=== PATIENT | female | born 2000 | race Caucasian/White ===

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

== ENCOUNTER → 2019-10-30 | Outpatient (CLI) | payer OTHER ==
--- NOTE | 2019-10-30 16:50 | XR ---
Bilateral knees HISTORY: Pain 3 views of each knee submitted on a total 6 images Bone mineralization, joint spaces and alignment are maintained bilaterally. No evident joint effusion . IMPRESSION: Normal knees.
== END | disposition home or self-care (01) ==
LOC: RADXRMAIN 13:13
PROVIDERS: ATTEND Family Medicine
DX: M25.561 Pain in right knee (principal)

== ENCOUNTER 2020-04-19 18:19 | Emergency (ER) | payer OTHER ==
[2020-04-19] MEDS ORDERED: KETOROLAC 30 MG/ML 1 ML VIAL IVP STA (19:19)
[2020-04-19] MEDS ORDERED: ONDANSETRON 4 MG/2 ML VIAL IVP STA (19:19)
[2020-04-19] MEDS ORDERED: SODIUM CHLORIDE 0.9% 1,000 ML IV STA (19:19)
[2020-04-19 19:36] LABS: Basophils # (A) 0.1 k/uL (0-0.2); Basophils % (A) 1 %; Eosinophils # (A) 0.1 k/uL (0-0.7); Eosinophils % (A) 1 %; HCT 44.1 % (34.0-46.0); HGB 14.6 gm/dL (11.4-16.0); Lymphocytes % (A) 27 %; MCH 27.9 pg (25.0-35.0); MCHC 33.2 g/dL (31.0-37.0); MCV 84.2 fL (80.0-100.0); Mean Platelet Volume 7.6; Monocytes # (A) 0.5 k/uL (0-1.0); Monocytes % (A) 7 %; Neutrophils # (A) 4.6 k/uL (1.3-7.7); Neutrophils % (A) 62 %; Platelet Count 281 k/uL (150-450); RBC 5.24 m/uL (3.80-5.40); RDW 12.8 % (11.5-15.5); WBC 7.4 k/uL (3.8-10.6)
[2020-04-19 19:45] LABS: Amorphous Sediment,Urine Rare /hpf; Appearance,Urine Clear (Clear); Bacteria,Urine Occasional /hpf; Bilirubin,Urine Negative (Negative); Blood,Urine Small (Negative); Color,Urine Yellow; Glucose,Urine (UA) Negative (Negative); Hyaline Casts,Urine 3 /lpf (0-2); Ketones,Urine 1+ (Negative); Leukocyte Esterase,Urine Negative (Negative); Mucus,Urine Many /hpf; Nitrite,Urine Negative (Negative); PH, Urine 5.5 (5.0-8.0); Protein,Urine Trace (Negative); RBC,Urine 3 /hpf (0-5); Squamous Epithelial Cell,Urine 1 /hpf (0-4); Urobilinogen,Urine <2.0 mg/dL (<2.0); WBC,Urine 4 /hpf (0-5)
[2020-04-19 19:46] LABS: ALT 48 U/L (4-34); AST 33 U/L (14-36); African American GFR (CKD) >90 (>60 ml/min/1.73 sqM); Albumin 4.5 g/dL (3.5-5.0); Alkaline Phosphatase 100 U/L (38-126); Anion Gap 9 mmol/L; Blood Urea Nitrogen 8 mg/dL (7-17); Calcium 9.5 mg/dL (8.4-10.2); Carbon Dioxide 25 mmol/L (22-30); Chloride 102 mmol/L (98-107); Glucose 85 mg/dL (74-99); Non-African American GFR(CKD) >90 (>60 ml/min/1.73 sqM); Sodium 136 mmol/L (137-145); Total Bilirubin 1.5 mg/dL (0.2-1.3)
[2020-04-19 20:21] VITALS: PULSE 78; RESP 18; TEMP 98.5
[2020-04-19 20:23] VITALS: BP 107/68
--- NOTE | 2020-04-19 21:13 | ED ---
Nausea/Vomiting/Diarrhea HPI - General Chief complaint: Nausea/Vomiting/Diarrhea Stated complaint: nausea, fever Time Seen by Provider: 04/19/20 18:26 Source: patient Mode of arrival: ambulatory Limitations: no limitations - History of Present Illness Initial comments: Patient is a 20-year-old female presenting to the emergency Department with complaints of intermittent nausea as well as diarrhea that has been going on for approximately 3 months. She states her appetite is also low. She states she has been trying to lose weight within the past few months and has been eating well. She does have a history of cholecystectomy. She denies any abdominal pains. She is prescribed Zofran and does take it almost daily. She does not see a GI doctor. She states she has a family history of IBS. She denies being at this time. She denies any vomiting, blood in her stool. She denies any urinary complaints. She denies any recent fever, chills. He denies any chest pain or shortness of breath. She has no further complaints at this time. Upon arrival to the ER, her vital signs are stable. - Related Data Previous Rx's Medication Instructions Recorded Ibuprofen 600 mg PO Q6HR #20 tablet 11/22/17 Omeprazole [PriLOSEC] 20 mg PO AC-BRKFST #14 cap 04/19/20 Ondansetron Odt [Zofran Odt] 4 mg PO Q8HR PRN #10 tab 04/19/20 Allergies Allergy/AdvReac Type Severity Reaction Status Date / Time metoclopramide HCl Allergy Rapid Verified 04/19/20 18:20 [From Reglan] Heart Rate sumatriptan [From Imitrex] Allergy Unknown Verified 04/19/20 18:20 diphenhydramine HCl AdvReac Unknown Verified 04/19/20 18:20 [From Benadryl] Review of Systems ROS Statement: Those systems with pertinent positive or pertinent negative responses have been documented in the HPI. ROS Other: All systems not noted in ROS Statement are negative. Past Medical History Past Medical History: No Reported History Additional Past Medical History / Comment(s): Wrist fracture bilaterally ciarri malformation , migraines. PCOS History of Any Multi-Drug Resistant Organisms: None Reported Past Surgical History: Cholecystectomy, Ear Surgery Additional Past Surgical History / Comment(s): tubes in ears Past Psychological History: No Psychological Hx Reported Smoking Status: Never smoker Past Alcohol Use History: None Reported Past Drug Use History: None Reported - Past Family History Mother Additional Family Medical History / Comment(s): brionna General Exam - General Exam Comments Initial Comments: GENERAL: Patient is well-developed and well-nourished. Patient is nontoxic and in no acute distress. HEAD: Atraumatic, normocephalic. EYES: Pupils equal round and reactive to light, extraocular movements intact, sclera anicteric, conjunctiva are normal. Eyelids were unremarkable. ENT: TMs normal, nares patent, oropharynx clear without exudates. Moist mucous membranes. NECK: Normal range of motion, supple without lymphadenopathy or JVD. LUNGS: Unlabored respirations. Breath sounds clear to auscultation bilaterally and equal. No wheezes rales or rhonchi. HEART: Regular rate and rhythm without murmurs, rubs or gallops. ABDOMEN: Soft, nontender, normoactive bowel sounds. No guarding, no rebound. No masses appreciated. : Deferred MUSCULOSKELETAL: Normal extremities with adequate strength and normal range of motion, no pitting or edema. No clubbing or cyanosis. NEUROLOGICAL: Normal speech, normal gait. PSYCH: Normal mood, normal affect. SKIN: Warm, Dry, normal turgor, no rashes or lesions noted. Limitations: no limitations Course Vital Signs 04/19/20 04/19/20 18:21 20:20 Temperature 99.0 F 98.5 F Pulse Rate 67 78 Respiratory 16 18 Rate Blood Pressure 118/80 107/68 O2 Sat by Pulse 100 100 Oximetry Medical Decision Making - Medical Decision Making Patient is 20-year-old female here for intermittent nausea, diarrhea 3 months. Her vital signs are stable. She has no abdominal pain, states she is not . Patient was given fluids, Zofran and Toradol. Lab work shows no significant abnormalities, lactic acid is normal. Urine shows 1+ ketones, no signs of infection. I discussed these findings with the patient. She states her symptoms have improved she no longer feels nauseous. I discussed the patient and her symptoms are most likely related to irritable bowel, possible food ALLERGY. Patient states as she was sitting in the ER, she did mentioned a mild burning coming from her stomach traveling upwards. She states she has had issue with acid reflux in the past but no longer takes medications. I will start patient on omeprazole. I did recommend following up with GI specialist. She is stable for discharge and she is in agreement with this plan of care. Return parameters were discussed with the patient she verbalized understanding. Case discussed with Dr. Tavarez. - Lab Data Result diagrams: 04/19/20 18:50 04/19/20 18:50 Lab Results 04/19/20 04/19/20 04/19/20 Range/Units 18:50 18:50 18:50 WBC 7.4 (3.8-10.6) k/uL RBC 5.24 (3.80-5.40) m/uL Hgb 14.6 (11.4-16.0) gm/dL Hct 44.1 (34.0-46.0) % MCV 84.2 (80.0-100.0) fL MCH 27.9 (25.0-35.0) pg MCHC 33.2 (31.0-37.0) g/dL RDW 12.8 (11.5-15.5) % Plt Count 281 (150-450) k/uL Neutrophils % 62 % Lymphocytes % 27 % Monocytes % 7 % Eosinophils % 1 % Basophils % 1 % Neutrophils # 4.6 (1.3-7.7) k/uL Lymphocytes # 2.0 (1.0-4.8) k/uL Monocytes # 0.5 (0-1.0) k/uL Eosinophils # 0.1 (0-0.7) k/uL Basophils # 0.1 (0-0.2) k/uL Sodium (137-145) mmol/L Potassium (3.5-5.1) mmol/L Chloride (98-107) mmol/L Carbon Dioxide (22-30) mmol/L Anion Gap mmol/L BUN (7-17) mg/dL Creatinine (0.52-1.04) mg/dL Est GFR (CKD-EPI)AfAm (>60 ml/min/1.73 sqM) Est GFR (CKD-EPI)NonAf (>60 ml/min/1.73 sqM) Glucose (74-99) mg/dL Plasma Lactic Acid [place] (0.7-2.0) mmol/L Calcium (8.4-10.2) mg/dL Total Bilirubin (0.2-1.3) mg/dL AST (14-36) U/L ALT (4-34) U/L Alkaline Phosphatase (38-126) U/L Total Protein (6.3-8.2) g/dL Albumin (3.5-5.0) g/dL Lipase (23-300) U/L Urine Color Yellow Urine Appearance Clear (Clear) Urine pH 5.5 (5.0-8.0) Ur Specific [place] 1.030 (1.001-1.035) Urine Protein Trace H (Negative) Urine Glucose (UA) Negative (Negative) Urine Ketones 1+ H (Negative) Urine Blood Small H (Negative) Urine Nitrite Negative (Negative) Urine Bilirubin Negative (Negative) Urine Urobilinogen <2.0 (<2.0) mg/dL Ur Leukocyte Esterase Negative (Negative) Urine RBC 3 (0-5) /hpf Urine WBC 4 (0-5) /hpf Ur Squamous Epith Cells 1 (0-4) /hpf Amorphous Sediment Rare H (None) /hpf Urine Bacteria Occasional H (None) /hpf Hyaline Casts 3 H (0-2) /lpf Urine Mucus Many H (None) /hpf Urine HCG, Qual Not Detected (Not Detectd) 04/19/20 04/19/20 Range/Units 18:50 18:50 WBC (3.8-10.6) k/uL RBC (3.80-5.40) m/uL Hgb (11.4-16.0) gm/dL Hct (34.0-46.0) % MCV (80.0-100.0) fL MCH (25.0-35.0) pg MCHC (31.0-37.0) g/dL RDW (11.5-15.5) % Plt Count (150-450) k/uL Neutrophils % % Lymphocytes % % Monocytes % % Eosinophils % % Basophils % % Neutrophils # (1.3-7.7) k/uL Lymphocytes # (1.0-4.8) k/uL Monocytes # (0-1.0) k/uL Eosinophils # (0-0.7) k/uL Basophils # (0-0.2) k/uL Sodium 136 L (137-145) mmol/L Potassium 4.0 (3.5-5.1) mmol/L Chloride 102 (98-107) mmol/L Carbon Dioxide 25 (22-30) mmol/L Anion Gap 9 mmol/L BUN 8 (7-17) mg/dL Creatinine 0.79 (0.52-1.04) mg/dL Est GFR (CKD-EPI)AfAm >90 (>60 ml/min/1.73 sqM) Est GFR (CKD-EPI)NonAf >90 (>60 ml/min/1.73 sqM) Glucose 85 (74-99) mg/dL Plasma Lactic Acid [place] 0.8 (0.7-2.0) mmol/L Calcium 9.5 (8.4-10.2) mg/dL Total Bilirubin 1.5 H (0.2-1.3) mg/dL AST 33 (14-36) U/L ALT 48 H (4-34) U/L Alkaline Phosphatase 100 (38-126) U/L Total Protein 7.0 (6.3-8.2) g/dL Albumin 4.5 (3.5-5.0) g/dL Lipase 65 (23-300) U/L Urine Color Urine Appearance (Clear) Urine pH (5.0-8.0) Ur Specific [place] (1.001-1.035) Urine Protein (Negative) Urine Glucose (UA) (Negative) Urine Ketones (Negative) Urine Blood (Negative) Urine Nitrite (Negative) Urine Bilirubin (Negative) Urine Urobilinogen (<2.0) mg/dL Ur Leukocyte Esterase (Negative) Urine RBC (0-5) /hpf Urine WBC (0-5) /hpf Ur Squamous Epith Cells (0-4) /hpf Amorphous Sediment (None) /hpf Urine Bacteria (None) /hpf Hyaline Casts (0-2) /lpf Urine Mucus (None) /hpf Urine HCG, Qual (Not Detectd) Disposition Clinical Impression: GERD (gastroesophageal reflux disease), Nausea, Irritable bowel Disposition: HOME SELF-CARE Condition: Stable Instructions (If sedation given, give patient instructions): Gastroesophageal Reflux Disease (ED) Additional Instructions: Please return to the Emergency Department if symptoms worsen or any other concerns. Recommend trial of omeprazole for GERD symptoms. Try to keep food diary. Follow up with GI and/or PCP as discussed. Prescriptions: Omeprazole [PriLOSEC] 20 mg PO AC-BRKFST #14 cap Ondansetron Odt [Zofran Odt] 4 mg PO Q8HR PRN #10 tab PRN Reason: Nausea Is patient prescribed a controlled substance at d/c from ED?: No Referrals: Nikolay Drake DO [Primary Care Provider] - 1-2 days Valdemar Mccarthy MD [STAFF PHYSICIAN] - 1-2 days
== END 2020-04-19 21:40 | disposition home or self-care (01) ==
LOC: EC 18:19
DX: K21.9 Gastro-esophageal reflux disease without esophagitis (principal); K58.9 Irritable bowel syndrome, unspecified; Z90.49 Acquired absence of other specified parts of digestive tract; Z88.8 Allergy status to other drugs, medicaments and biological substances
CPT/HCPCS: 36415; 80053; 83605; 83690; 85025; 81001; 81025; 99284; 96374; 96375; 96361 ×2; J2405; J1885

== ENCOUNTER 2020-06-22 12:46 | Emergency (ER) | payer OTHER ==
[2020-06-22 13:16] VITALS: RESP 18
[2020-06-22] MEDS ORDERED: ALBUTEROL NEBULIZED 2.5 MG/3 ML INHALATION STA (14:24)
--- NOTE | 2020-06-22 14:32 | ED ---
SOB HPI - General Chief Complaint: Shortness of Breath Stated Complaint: Chills,Cough,Nausea Time Seen by Provider: 06/22/20 14:00 Source: patient Mode of arrival: ambulatory Limitations: no limitations - History of Present Illness Initial Comments: Patient is a 20-year-old female presenting to the emergency Department with complaints of some mild shortness of breath as well as a cough and chills that started 4 days ago. Patient states her symptoms started with a mild cough but has now progressed into chest tightness as well as a burning sensation when she coughs. She feels like she is short of breath and cannot take in a deep breath when she is at rest. She has a history of very mild asthma but currently does not need to use an inhaler. She admits to low-grade fever 99.9 yesterday, no other readings. She denies any vomiting, diarrhea does admit to some mild nausea. She denies being this time. She denies any significant chest pains, headache, blurry vision. She has no further complaints. Upon arrival to the ER, her vitals are stable. - Related Data Previous Rx's Medication Instructions Recorded Ibuprofen 600 mg PO Q6HR #20 tablet 11/22/17 Omeprazole [PriLOSEC] 20 mg PO AC-BRKFST #14 cap 04/19/20 Ondansetron Odt [Zofran Odt] 4 mg PO Q8HR PRN #10 tab 04/19/20 Albuterol Inhaler [Ventolin Hfa 1 puff INHALATION RT-QID PRN #1 06/22/20 Inhaler] unit methylPREDNISolone [Medrol Dose 4 mg PO DIRECTED #1 pack 06/22/20 Pack] Allergies Allergy/AdvReac Type Severity Reaction Status Date / Time metoclopramide HCl Allergy Rapid Verified 06/22/20 13:16 [From Reglan] Heart Rate sumatriptan [From Imitrex] Allergy Unknown Verified 06/22/20 13:16 diphenhydramine HCl AdvReac Unknown Verified 06/22/20 13:16 [From Benadryl] Review of Systems ROS Statement: Those systems with pertinent positive or pertinent negative responses have been documented in the HPI. ROS Other: All systems not noted in ROS Statement are negative. Past Medical History Past Medical History: No Reported History Additional Past Medical History / Comment(s): ciarri malformation , migraines. PCOS History of Any Multi-Drug Resistant Organisms: None Reported Past Surgical History: Cholecystectomy, Ear Surgery Additional Past Surgical History / Comment(s): tubes in ears, bilateral wrist fractures, tethered spinal cord surgery Past Psychological History: Anxiety Smoking Status: Never smoker Past Alcohol Use History: None Reported Past Drug Use History: None Reported - Past Family History Mother Additional Family Medical History / Comment(s): chiari General Exam - General Exam Comments Initial Comments: GENERAL: Patient is well-developed and well-nourished. Patient is nontoxic and in no acute distress. HEAD: Atraumatic, normocephalic. EYES: Pupils equal round and reactive to light, extraocular movements intact, sclera anicteric, conjunctiva are normal. Eyelids were unremarkable. ENT: TMs normal, nares patent, oropharynx clear without exudates. Moist mucous membranes. NECK: Normal range of motion, supple without lymphadenopathy or JVD. LUNGS: Unlabored respirations. Breath sounds clear to auscultation bilaterally and equal. No wheezes rales or rhonchi. HEART: Regular rate and rhythm without murmurs, rubs or gallops. ABDOMEN: Soft, nontender, normoactive bowel sounds. No guarding, no rebound. No masses appreciated. : Deferred MUSCULOSKELETAL: Normal extremities with adequate strength and normal range of motion, no pitting or edema. No clubbing or cyanosis. NEUROLOGICAL: Patient is alert and oriented x 3. Motor and sensory are also intact. Cranial nerves II through XII grossly intact. Symmetrical smile. Normal speech, normal gait. PSYCH: Normal mood, normal affect. SKIN: Warm, Dry, normal turgor, no rashes or lesions noted. Limitations: no limitations Course Vital Signs 06/22/20 06/22/20 06/22/20 13:13 14:45 14:55 Temperature 98.9 F Pulse Rate 93 80 72 Respiratory 18 Rate Blood Pressure 128/81 O2 Sat by Pulse 98 Oximetry 06/22/20 15:47 Temperature 99.3 F Pulse Rate 66 Respiratory 18 Rate Blood Pressure 118/83 O2 Sat by Pulse 100 Oximetry Medical Decision Making - Medical Decision Making Patient is a 20-year-old female here for shortness of breath, mild cough 4 days. She states she has a low-grade fever yesterday, her vitals are normal today. Her exam is unremarkable. Chest x-ray shows no acute abnormalities, EKG is normal. I did give patient an albuterol breathing treatment, she states improvement with the treatment. I discussed the patient's symptoms most likely related to mild bronchitis, costochondritis. I will give her a short course of steroids and she is also requesting I refill her albuterol inhaler. 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 I will do this, this is pending. She is stable for discharge. Return parameters were discussed with the patient she verbalized understanding. - EKG Data EKG Comments: Normal sinus rhythm, sinus arrhythmia, no signs of acute ischemia. Ventricular rate 87, CT interval 140, QT 378. Disposition Clinical Impression: Upper respiratory infection, viral Disposition: HOME SELF-CARE Condition: Stable Instructions (If sedation given, give patient instructions): Upper Respiratory Infection (ED) Additional Instructions: Please return to the Emergency Department if symptoms worsen or any other concerns. Take steroids as prescribed. Use albuterol inhaler as needed for shortness of breath. Follow up with PCP. Your Covid test is pending at this time. Prescriptions: methylPREDNISolone [Medrol Dose Pack] 4 mg PO DIRECTED #1 pack Albuterol Inhaler [Ventolin Hfa Inhaler] 1 puff INHALATION RT-QID PRN #1 unit PRN Reason: Shortness Of Breath Is patient prescribed a controlled substance at d/c from ED?: No Referrals: Nikolay Drake DO [Primary Care Provider] - 1-2 days
--- NOTE | 2020-06-22 14:54 | XR ---
EXAMINATION TYPE: XR chest 2V DATE OF EXAM: 06/22/2020 CLINICAL HISTORY: Cough, dyspnea TECHNIQUE: Frontal and lateral views of the chest are obtained. COMPARISON: Chest radiograph 10/18/2016 FINDINGS: The cardiomediastinal silhouette is within normal limits for size. Pulmonary vasculature i s normal. There is no focal air space opacity, pleural effusion, or pneumothorax seen. The osseous st ructures are intact. IMPRESSION: No acute cardiopulmonary process.
[2020-06-22 15:48] VITALS: BP 118/83; PULSE 66; TEMP 99.3
== END 2020-06-22 15:48 | disposition home or self-care (01) ==
LOC: EC 12:46
DX: B34.9 Viral infection, unspecified (principal); J06.9 Acute upper respiratory infection, unspecified; Z20.828 Contact with and (suspected) exposure to other viral communicable diseases; Z88.8 Allergy status to other drugs, medicaments and biological substances
CPT/HCPCS: 99285; 94640; 93005; 71046; U0003

== ENCOUNTER 2020-08-07 15:46 | Emergency (ER) | payer BC, OTHER ==
[2020-08-07 15:56] VITALS: BP 119/83; PULSE 65; RESP 18; TEMP 98.1
--- NOTE | 2020-08-07 16:39 | ED ---
Upper Extremity HPI - General Chief Complaint: Extremity Injury, Upper Stated Complaint: R Wrist Injury Time Seen by Provider: 08/07/20 15:59 Source: patient Mode of arrival: ambulatory Limitations: no limitations - History of Present Illness Initial Comments: 20-year-old female presenting to the emergency department with a chief complaint of right wrist pain. Patient states she was in her bathroom, lost balance and attempted to catch herself. States she hit her right hand into the counter. Patient reports pain in the distal forearm as well as the wrist. States she has almost full range of motion in the wrist. However, she does report some pain with full flexion and extension. States she is able to move her fingers without any difficulties. Denies taking medication to alleviate the symptoms. Denies ecchymosis but does report swelling. Denies taking medication to alleviate the symptoms. Denies numbness or tingling. - Related Data Previous Rx's Medication Instructions Recorded Ibuprofen 600 mg PO Q6HR #20 tablet 11/22/17 Omeprazole [PriLOSEC] 20 mg PO AC-BRKFST #14 cap 04/19/20 Ondansetron Odt [Zofran Odt] 4 mg PO Q8HR PRN #10 tab 04/19/20 Albuterol Inhaler [Ventolin Hfa 1 puff INHALATION RT-QID PRN #1 06/22/20 Inhaler] unit methylPREDNISolone [Medrol Dose 4 mg PO DIRECTED #1 pack 06/22/20 Pack] Allergies Allergy/AdvReac Type Severity Reaction Status Date / Time metoclopramide HCl Allergy Rapid Verified 08/07/20 15:56 [From Reglan] Heart Rate sumatriptan [From Imitrex] Allergy Unknown Verified 08/07/20 15:56 diphenhydramine HCl AdvReac Unknown Verified 08/07/20 15:56 [From Benadryl] Review of Systems ROS Statement: Those systems with pertinent positive or pertinent negative responses have been documented in the HPI. ROS Other: All systems not noted in ROS Statement are negative. Past Medical History Past Medical History: No Reported History Additional Past Medical History / Comment(s): ciarri malformation , migraines, eds. PCOS History of Any Multi-Drug Resistant Organisms: None Reported Past Surgical History: Cholecystectomy, Ear Surgery Additional Past Surgical History / Comment(s): tubes in ears, bilateral wrist fractures, tethered spinal cord surgery Past Psychological History: Anxiety Smoking Status: Never smoker Past Alcohol Use History: None Reported Past Drug Use History: None Reported - Past Family History Mother Additional Family Medical History / Comment(s): chiari General Exam Limitations: no limitations General appearance: alert, in no apparent distress, obese Head exam: Present: atraumatic, normocephalic, normal inspection Eye exam: Present: normal appearance, PERRL, EOMI. Absent: scleral icterus, conjunctival injection, nystagmus Pupils: Present: normal accommodation ENT exam: Present: normal exam, normal oropharynx, mucous membranes moist, TM's normal bilaterally, normal external ear exam Neck exam: Present: normal inspection, full ROM. Absent: tenderness Respiratory exam: Present: normal lung sounds bilaterally. Absent: respiratory distress, wheezes, rales Cardiovascular Exam: Present: regular rate, normal rhythm, normal heart sounds Extremities exam: Present: full ROM (Full range of motion the right wrist), tenderness (Distal right forearm tenderness and right wrist tenderness.), normal capillary refill, joint swelling (Right wrist), other (+2 ulnar and radial pulses bilaterally.). Absent: normal inspection (Swelling noted on the distal right forearm.), pedal edema, calf tenderness Back exam: Present: normal inspection, full ROM. Absent: tenderness, CVA tenderness (R), CVA tenderness (L) Neurological exam: Present: alert, oriented X3, CN II-XII intact, normal gait Psychiatric exam: Present: normal affect, normal mood Skin exam: Present: warm, dry, intact, normal color Course Vital Signs 08/07/20 15:54 Temperature 98.1 F Pulse Rate 65 Respiratory 18 Rate Blood Pressure 119/83 O2 Sat by Pulse 99 Oximetry Medical Decision Making - Medical Decision Making 20-year-old female presenting to the emergency department with a chief complaint of wrist pain. On physical examination, patient does have swelling at the right wrist. X-ray of the wrist and hand reveals no acute processes. Darian wrap was applied. Patient was advised to rest, ice, compression and elevate. She was also advised to follow with an transition specialist. Strict return parameters were thoroughly discussed with patient is understanding and agreeable. Case discussed with physician. Disposition Clinical Impression: Right wrist sprain, Right wrist injury Disposition: HOME SELF-CARE Condition: Stable Instructions (If sedation given, give patient instructions): Wrist Injury (ED) Additional Instructions: Alternate between Tylenol and Motrin for pain control. Apply ice compresses, rest and follow-up with an transition specialist. Return to emergency department if symptoms worsen. Is patient prescribed a controlled substance at d/c from ED?: No Referrals: Nikolay Drake DO [Primary Care Provider] - 1-2 days Etienne Rosenberg MD [STAFF PHYSICIAN] - 1-2 days Time of Disposition: 17:22
--- NOTE | 2020-08-07 17:13 | XR ---
EXAMINATION TYPE: XR wrist complete RT DATE OF EXAM: 08/07/2020 COMPARISON: NONE HISTORY: Pain TECHNIQUE: 4 views FINDINGS: I see no fracture nor dislocation. Joint spaces are normal. Carpal bones are intact. There are no erosions. Scaphoid is intact. IMPRESSION: Normal right wrist exam.
--- NOTE | 2020-08-07 17:16 | XR ---
EXAMINATION TYPE: XR hand complete RT DATE OF EXAM: 08/07/2020 COMPARISON: NONE HISTORY: Pain TECHNIQUE: 3 views FINDINGS: Metacarpals are intact. I see no fracture nor dislocation. Fingers appear intact. The joint spaces are normal. IMPRESSION: Negative right hand exam.
[2020-08-07] MEDS ORDERED: ACETAMINOPHEN TAB 325 MG TAB PO STA (17:30)
== END 2020-08-07 18:00 | disposition home or self-care (01) ==
LOC: EC 15:46
DX: S63.501A Unspecified sprain of right wrist, initial encounter (principal); Z88.8 Allergy status to other drugs, medicaments and biological substances; W22.03XA Walked into furniture, initial encounter; Y93.89 Activity, other specified; Y92.002 Bathroom of unspecified non-institutional (private) residence as the place of occurrence of the external cause
CPT/HCPCS: 99283

== ENCOUNTER 2020-08-13 06:20 | Emergency (ER) | payer BC, OTHER ==
[2020-08-13 06:24] VITALS: RESP 18
--- NOTE | 2020-08-13 06:51 | ED ---
General Adult HPI - General Chief complaint: Extremity Injury, Upper Stated complaint: wrist pain Time Seen by Provider: 08/13/20 06:31 Source: patient, RN notes reviewed Mode of arrival: ambulatory Limitations: no limitations - History of Present Illness Initial comments: 20 old female with a past medical history of PCO S, Chiari malformation, migraines presents to the emergency room for right wrist pain. Patient reports that about a week ago she tripped and fell on the right wrist. States it has been painful since that time. Patient reports she came to the ER and had x-rays performed which were negative. She then saw orthopedics. They confirmed no break however ordered an MRI for September 01. She reports they wrote her prescription for a cockup splint with thumb spica and that she has not been able to go get this yet. She has been taking Motrin and Tylenol alternating every 8 hours. She states that the past couple days she has been having more shooting pain into her fingers. States it is painful to move her wrist.Patient has no other complaints at this time including shortness of breath, chest pain, abdominal pain, nausea or vomiting, headache, or visual changes. - Related Data Home Medications Medication Instructions Recorded Confirmed Norgestimate-Ethinyl Estradiol 1 tab PO DAILY 08/13/20 08/13/20 [Sprintec 28 Day Tablet] Spironolactone 50 mg PO DAILY 08/13/20 08/13/20 Allergies Allergy/AdvReac Type Severity Reaction Status Date / Time metoclopramide HCl Allergy Rapid Verified 08/13/20 07:17 [From Reglan] Heart Rate sumatriptan [From Imitrex] Allergy Unknown Verified 08/13/20 07:17 diphenhydramine HCl AdvReac Unknown Verified 08/13/20 07:17 [From Benadryl] Review of Systems ROS Statement: Those systems with pertinent positive or pertinent negative responses have been documented in the HPI. ROS Other: All systems not noted in ROS Statement are negative. Past Medical History Past Medical History: No Reported History Additional Past Medical History / Comment(s): ciarri malformation , migraines, eds. PCOS History of Any Multi-Drug Resistant Organisms: None Reported Past Surgical History: Cholecystectomy, Ear Surgery Additional Past Surgical History / Comment(s): tubes in ears, bilateral wrist fractures, tethered spinal cord surgery, granuloma removed from jaw 2018 Past Psychological History: Anxiety Smoking Status: Never smoker Past Alcohol Use History: None Reported Past Drug Use History: None Reported - Past Family History Mother Additional Family Medical History / Comment(s): chiari General Exam Limitations: no limitations General appearance: alert, in no apparent distress Head exam: Present: atraumatic, normocephalic, normal inspection Eye exam: Present: normal appearance, PERRL, EOMI. Absent: scleral icterus, conjunctival injection, periorbital swelling ENT exam: Present: normal exam, mucous membranes moist Neck exam: Present: normal inspection. Absent: tenderness, meningismus, lymphadenopathy Cardiovascular Exam: Present: regular rate, normal rhythm, normal heart sounds. Absent: systolic murmur, diastolic murmur, rubs, gallop, clicks Extremities exam: Present: tenderness (Tenderness noted in the ulnar aspect of the right wrist. No scaphoid tenderness.), normal capillary refill (Capillary refill less than 2 seconds in all fingers, radial pulses 2+.), other (Sensation intact in right upper extremity. Laser/Electro Optics Technician strength 5 out of 5.). Absent: full ROM (Patient has flexion and extension mechanisms intact however does have pain with this. Patient has pain with extension of fingers but is able to do so.), pedal edema, joint swelling, calf tenderness Neurological exam: Present: alert Course Vital Signs 08/13/20 06:20 Temperature 98.4 F Pulse Rate 76 Respiratory 18 Rate Blood Pressure 122/88 O2 Sat by Pulse 100 Oximetry Medical Decision Making - Medical Decision Making Vitals are stable. Physical exam is generally unremarkable. She does have some restricted range of motion secondary to pain however flexor and extensor mechanisms are intact. Neurovascular status intact throughout the right upper extremity. She did present with a tightly wrapped Darian wrap which I suspect was giving her the sensation in her fingers were cold however fingers have good cap refill are warm to touch and are neurovascularly intact. I did repeat x-rays today which were negative for acute fracture. I offered OCL splint is patient did accept. At this time I recommend she follow back up with orthopedics to let them know we did place an OCL. She will increase her Motrin and Tylenol usage to alternating every 3 hours for the next 2 days. I discussed rice therapy. She will return here for any worsening symptoms. Disposition Clinical Impression: Right wrist injury Disposition: HOME SELF-CARE Condition: Good Instructions (If sedation given, give patient instructions): Wrist Injury (ED) Additional Instructions: Please take Motrin and Tylenol for pain alternating up to every 3 hours. Rest ice and elevate the right wrist. Follow-up with orthopedics and let them know we did place an OCL today. If you have worsening symptoms return to the emergency room. Is patient prescribed a controlled substance at d/c from ED?: No Referrals: Nikolay Drake DO [Primary Care Provider] - 1-2 days Time of Disposition: 07:29
--- NOTE | 2020-08-13 07:13 | XR ---
EXAMINATION TYPE: XR wrist complete RT, XR hand complete RT DATE OF EXAM: 08/13/2020 CLINICAL HISTORY: Chronic pain. TECHNIQUE: Frontal, lateral and oblique images of the right hand and wrist are obtained. 4 views sc aphoid view was performed. COMPARISON: Right hand and wrist x-ray from 6 days ago. FINDINGS: There is no acute fracture/dislocation evident in the right wrist. The joint spaces in th e right wrist remain within normal limits. The overlying soft tissue appears unremarkable. Images of the right hand show no acute fracture or dislocation. Joint spaces are maintained. Overlyin g soft tissue is unremarkable. IMPRESSION: As above. Unremarkable studies. No significant change from recent x-rays.
[2020-08-13 08:13] VITALS: BP 124/82; PULSE 82; TEMP 98.2
== END 2020-08-13 08:13 | disposition home or self-care (01) ==
LOC: EC 06:20
DX: S69.91XA Unspecified injury of right wrist, hand and finger(s), initial encounter (principal); Z79.3 Long term (current) use of hormonal contraceptives; Z79.899 Other long term (current) drug therapy; Z88.8 Allergy status to other drugs, medicaments and biological substances; W01.0XXA Fall on same level from slipping, tripping and stumbling without subsequent striking against object, initial encounter
CPT/HCPCS: 99283

== ENCOUNTER 2021-04-01 23:41 | Emergency (ER) | payer BC, OTHER ==
[2021-04-01 23:45] VITALS: BP 114/79; PULSE 72; RESP 19; TEMP 97.6
--- NOTE | 2021-04-02 00:22 | ED ---
Allergic Reaction HPI - General Chief complaint: Allergic Reaction Stated complaint: Poss med reaction Time Seen by Provider: 04/02/21 00:04 Source: patient Mode of arrival: ambulatory - History of Present Illness Initial Comments: 21-year-old female presents to emergency Department with a chief complaint of possible ALLERGIC reaction. Patient reports she was started on Medrol Dosepak for mosquito bites. States she was also started on Bactrim and has so far take it only 2 doses of medication. Patient reports she woke up this morning feeling flushed erythematous skin on her whole body. She denies any lesions that would suggest hives. Patient denies any nausea vomiting or diarrhea. Denies any difficulty breathing or swallowing or drooling. States she stopped taking both medications earlier today. States she is ALLERGIC to Benadryl. - Related Data Home Medications Medication Instructions Recorded Confirmed Norgestimate-Ethinyl Estradiol 1 tab PO DAILY 08/13/20 08/13/20 [Sprintec 28 Day Tablet] Spironolactone 50 mg PO DAILY 08/13/20 08/13/20 Allergies Allergy/AdvReac Type Severity Reaction Status Date / Time metoclopramide HCl Allergy Rapid Verified 04/01/21 23:44 [From Reglan] Heart Rate sumatriptan [From Imitrex] Allergy Unknown Verified 04/01/21 23:44 diphenhydramine HCl AdvReac Unknown Verified 04/01/21 23:44 [From Benadryl] Review of Systems ROS Statement: Those systems with pertinent positive or pertinent negative responses have been documented in the HPI. ROS Other: All systems not noted in ROS Statement are negative. Past Medical History Past Medical History: No Reported History Additional Past Medical History / Comment(s): ciarri malformation , migraines, eds. PCOS History of Any Multi-Drug Resistant Organisms: None Reported Past Surgical History: Cholecystectomy, Ear Surgery Additional Past Surgical History / Comment(s): tubes in ears, bilateral wrist fractures, tethered spinal cord surgery, granuloma removed from jaw 2018 Past Psychological History: Anxiety Smoking Status: Never smoker Past Alcohol Use History: None Reported Past Drug Use History: None Reported - Past Family History Mother Additional Family Medical History / Comment(s): chiari General Exam Limitations: no limitations General appearance: alert, in no apparent distress, obese Head exam: Present: atraumatic, normocephalic, normal inspection Eye exam: Present: normal appearance, PERRL, EOMI Pupils: Present: normal accommodation ENT exam: Present: normal exam, normal oropharynx, mucous membranes moist Neck exam: Present: normal inspection, full ROM. Absent: tenderness Respiratory exam: Present: normal lung sounds bilaterally. Absent: respiratory distress, wheezes, rales, rhonchi, stridor Cardiovascular Exam: Present: regular rate, normal rhythm, normal heart sounds. Absent: systolic murmur Extremities exam: Present: normal inspection, full ROM, normal capillary refill. Absent: tenderness, pedal edema Back exam: Present: normal inspection, full ROM. Absent: tenderness, CVA tenderness (R), CVA tenderness (L), muscle spasm, paraspinal tenderness, vertebral tenderness Neurological exam: Present: alert, oriented X3, normal gait Psychiatric exam: Present: normal affect, normal mood Skin exam: Present: warm, dry, intact, normal color Course Vital Signs 04/01/21 23:42 Temperature 97.6 F Pulse Rate 72 Respiratory 19 Rate Blood Pressure 114/79 O2 Sat by Pulse 99 Oximetry Medical Decision Making - Medical Decision Making 21-year-old female presents to emergency Department chief complaint of possible ALLERGIC reaction. On physical examination, patient is well-appearing. No signs of respiratory distress. She is tolerating by mouth without any difficulties. Advised the patient to stop taking both the Medrol Dosepak and the Bactrim. Likely she is experiencing the symptoms secondary to the sulfa from the Bactrim. Strict return parameters were thoroughly discussed the patient was standing ago. Case discussed with physician. - Lab Data Lab Results 04/02/21 Range/Units 00:32 POC Glucose (mg/dL) 116 H (75-99) mg/dL POC Glu Cephalometric Technician ID Virgil Andres Disposition Clinical Impression: Allergic reaction to drug Disposition: HOME SELF-CARE Condition: Stable Instructions (If sedation given, give patient instructions): Antibiotic Medication Allergy (ED) Additional Instructions: Please return to the Emergency Department if symptoms worsen or any other concerns. Is patient prescribed a controlled substance at d/c from ED?: No Referrals: Nikolay Drake DO [Primary Care Provider] - 1-2 days Time of Disposition: 00:22
[2021-04-02 00:57] LABS: Glucose,Whole Blood 116 mg/dL (75-99)
== END 2021-04-02 00:39 | disposition home or self-care (01) ==
LOC: EC 23:41
DX: L53.9 Erythematous condition, unspecified (principal); T38.0X5A Adverse effect of glucocorticoids and synthetic analogues, initial encounter; E66.9 Obesity, unspecified; Z88.8 Allergy status to other drugs, medicaments and biological substances; Z68.37 Body mass index [BMI] 37.0-37.9, adult
CPT/HCPCS: 36415; 99283

== ENCOUNTER 2021-12-13 05:24 | Emergency (ER) | payer OTHER ==
[2021-12-13 05:31] VITALS: TEMP 98.6
[2021-12-13 06:09] VITALS: RESP 18
--- NOTE | 2021-12-13 06:37 | ED ---
URI HPI - General Chief Complaint: Upper Respiratory Infection Stated Complaint: Sore throat, cough Time Seen by Provider: 12/13/21 06:02 Source: patient, RN notes reviewed Mode of arrival: ambulatory Limitations: no limitations - History of Present Illness Initial Comments: 21-year-old female presents emergency Department chief complaint of cough and co ld-like symptoms. Patient states she's been sick since Monday. Patient states progressively worsened. She states initially started with sore throat has progressively nasal congestion cough which is productive at time she reports low-grade fever, chills. She denies any chest pain or any significant shortness breath states she has had some mild shortness breath though she does have asthma. 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 - Related Data Home Medications Medication Instructions Recorded Confirmed Norgestimate-Ethinyl Estradiol 1 tab PO DAILY 08/13/20 08/13/20 [Sprintec 28 Day Tablet] Spironolactone 50 mg PO DAILY 08/13/20 08/13/20 Previous Rx's Medication Instructions Recorded predniSONE 50 mg PO DAILY #5 tab 12/13/21 Allergies Allergy/AdvReac Type Severity Reaction Status Date / Time metoclopramide HCl Allergy Rapid Verified 12/13/21 05:31 [From Reglan] Heart Rate Sulfa (Sulfonamide Allergy Rash/Hives Verified 12/13/21 05:31 Antibiotics) sumatriptan [From Imitrex] Allergy Unknown Verified 12/13/21 05:31 diphenhydramine HCl AdvReac Unknown Verified 12/13/21 05:31 [From Benadryl] Review of Systems ROS Statement: Those systems with pertinent positive or pertinent negative responses have been documented in the HPI. ROS Other: All systems not noted in ROS Statement are negative. Past Medical History Past Medical History: No Reported History Additional Past Medical History / Comment(s): ciarri malformation , migraines, eds. PCOS History of Any Multi-Drug Resistant Organisms: None Reported Past Surgical History: Cholecystectomy, Ear Surgery Additional Past Surgical History / Comment(s): tubes in ears, bilateral wrist fractures, tethered spinal cord surgery, granuloma removed from jaw 2018 Past Psychological History: Anxiety Smoking Status: Never smoker Past Alcohol Use History: None Reported Past Drug Use History: None Reported - Past Family History Mother Additional Family Medical History / Comment(s): chiari General Exam General appearance: alert, in no apparent distress Head exam: Present: atraumatic, normocephalic, normal inspection Eye exam: Present: normal appearance, PERRL, EOMI. Absent: scleral icterus, conjunctival injection, periorbital swelling ENT exam: Present: normal exam, mucous membranes moist Neck exam: Present: normal inspection, full ROM. Absent: tenderness, meningismus, lymphadenopathy Respiratory exam: Present: normal lung sounds bilaterally. Absent: respiratory distress, wheezes, rales, rhonchi, stridor Cardiovascular Exam: Present: regular rate, normal rhythm, normal heart sounds. Absent: systolic murmur, diastolic murmur, rubs, gallop, clicks GI/Abdominal exam: Present: soft, normal bowel sounds. Absent: distended, tenderness, guarding, rebound, rigid Course Vital Signs 12/13/21 12/13/21 12/13/21 05:29 06:06 06:09 Temperature 98.6 F Pulse Rate 85 82 Respiratory 16 18 18 Rate Blood Pressure 138/87 O2 Sat by Pulse 98 95 Oximetry Medical Decision Making - Medical Decision Making covid 19 negative. Patient has chest x-ray shows bilateral inflammatory changes. Patient will be discharged in stable condition return parameters were discussed. - Lab Data Lab Results 12/13/21 Range/Units 06:23 Coronavirus (PCR) Not Detected (Not Detectd) Disposition Clinical Impression: Acute upper respiratory infection Disposition: HOME SELF-CARE Condition: Stable Instructions (If sedation given, give patient instructions): Upper Respiratory Infection (ED) Additional Instructions: Please return to the Emergency Department if symptoms worsen or any other concerns. Prescriptions: predniSONE 50 mg PO DAILY #5 tab Is patient prescribed a controlled substance at d/c from ED?: No Referrals: Nikolay Drake DO [Primary Care Provider] - 1-2 days Time of Disposition: 07:22
--- NOTE | 2021-12-13 07:17 | XR ---
EXAMINATION TYPE: XR chest 2V DATE OF EXAM: 12/13/2021 COMPARISON: 06/22/2020 HISTORY: 21-year-old female with cough TECHNIQUE: PA and lateral views FINDINGS: Heart normal size. Low lung volumes. Some streaky perihilar peribronchial densities are noted bilater ally. Aorta and pulmonary vasculature within normal limits. No consolidation or pleural effusion seen . IMPRESSION: Some changes which may be seen with viral or reactive small airways disease. No lobar pneumonia seen at this time.
[2021-12-13 07:30] VITALS: BP 117/66; PULSE 69
== END 2021-12-13 07:30 | disposition home or self-care (01) ==
LOC: EC 05:24
DX: J06.9 Acute upper respiratory infection, unspecified (principal); Z20.822 Contact with and (suspected) exposure to COVID-19; F41.9 Anxiety disorder, unspecified; Z79.899 Other long term (current) drug therapy
CPT/HCPCS: 71046; 87635; 99283

== ENCOUNTER → 2021-12-29 | Outpatient (CLI) | payer OTHER ==
--- NOTE | 2021-12-29 15:46 | US ---
EXAMINATION TYPE: US thyroid st tissue head/neck DATE OF EXAM: 12/29/2021 COMPARISON: NONE CLINICAL HISTORY: R59.0 Enlarged lymph nodes. thyroidomegaly GLAND SIZE: Right Lobe: 4.9 x 1.2 x 1.5 cm Overall Parenchyma: homogenous Left Lobe: 4.1 x 0.9 x 1.3 cm Overall Parenchyma: homogeneous Isthmus Thickness: 0.3 cm NODULES RIGHT: # of nodules measured on right: 0 LEFT: # of nodules measured on left: 0 ISTHMUS: # of nodules measured in the isthmus: 0 Bilateral neck scanned, no evidence of lymphadenopathy. IMPRESSION: Normal study
== END | disposition home or self-care (01) ==
LOC: RADUSWWP 15:04
PROVIDERS: ATTEND Family Medicine
DX: R59.0 Localized enlarged lymph nodes (principal)
CPT/HCPCS: 76536

== ENCOUNTER 2022-03-10 08:03 | Emergency (ER) | payer OTHER ==
[2022-03-10 08:10] VITALS: RESP 18; TEMP 97.7
--- NOTE | 2022-03-10 08:37 | ED ---
Chest Pain HPI - General Chief Complaint: Chest Pain Stated Complaint: Chest pain, arm numbness Time Seen by Provider: 03/10/22 08:20 Source: patient, RN notes reviewed Mode of arrival: ambulatory Limitations: no limitations - History of Present Illness Initial Comments: 19-year-old female with a family history of a mother and had heart disease in her mid to late 30s who presents with 2 days of intermittent episodes of anterior chest pain sharp and achy in nature currently 6/10 severity somewhat reproducible with pushing on the chest wall also states she's has some pain radiating into her right arm. No fevers chills nausea vomiting sweats no recent injuries no lifting. No prior history of costochondritis that she knows of. She has had cranial surgery for a Chiari malformation she has had laminectomy in the past also. No other current complaints or modifying factors. She denies any cough or any complaints of phlegm production last menstrual period was the 17th of this month. She denies any chance of MD Complaint: chest pain, other - Related Data Home Medications Medication Instructions Recorded Confirmed Spironolactone 50 mg PO DAILY 08/13/20 08/13/20 norgestimate-ethinyl estradioL 1 tab PO DAILY 08/13/20 08/13/20 [Sprintec 28 Day Tablet] Previous Rx's Medication Instructions Recorded predniSONE 50 mg PO DAILY #5 tab 12/13/21 Ibuprofen [Motrin] 600 mg PO Q6HR PRN #20 tab 03/10/22 predniSONE [Deltasone] 20 mg PO BID #10 tab 03/10/22 Allergies Allergy/AdvReac Type Severity Reaction Status Date / Time metoclopramide HCl Allergy Rapid Verified 12/13/21 05:31 [From Reglan] Heart Rate Sulfa (Sulfonamide Allergy Rash/Hives Verified 12/13/21 05:31 Antibiotics) sumatriptan [From Imitrex] Allergy Unknown Verified 12/13/21 05:31 diphenhydramine HCl AdvReac Unknown Verified 12/13/21 05:31 [From Benadryl] Review of Systems ROS Statement: Those systems with pertinent positive or pertinent negative responses have been documented in the HPI. ROS Other: All systems not noted in ROS Statement are negative. EKG Findings - EKG Results: EKG: interpreted by ERMD, WNL, sinus rhythm, normal axis, normal QRS, normal ST/T, no acute changes (Normal sinus rhythm a 69. Interval 150 to QRS duration 94 daily since QTC 405/[address]-T wave changes) Past Medical History Past Medical History: No Reported History Additional Past Medical History / Comment(s): ciarri malformation , migraines, eds. PCOS History of Any Multi-Drug Resistant Organisms: None Reported Past Surgical History: Cholecystectomy, Ear Surgery Additional Past Surgical History / Comment(s): tubes in ears, bilateral wrist fractures, tethered spinal cord surgery, granuloma removed from jaw 2018 Past Psychological History: Anxiety Smoking Status: Never smoker Past Alcohol Use History: None Reported Past Drug Use History: None Reported - Past Family History Mother Additional Family Medical History / Comment(s): chiari General Exam - General Exam Comments Initial Comments: This is a well-developed well-nourished awake alert oriented 3 female Limitations: no limitations General appearance: alert, in no apparent distress Head exam: Present: atraumatic, normocephalic, normal inspection Eye exam: Present: normal appearance, PERRL, EOMI. Absent: scleral icterus, conjunctival injection, periorbital swelling ENT exam: Present: normal exam, mucous membranes moist Neck exam: Present: normal inspection, full ROM, other (No stridor JVD or bruits). Absent: tenderness, meningismus, lymphadenopathy Respiratory exam: Present: normal lung sounds bilaterally, chest wall tenderness (Reproducible tenderness palpation along the costal sternal margins bilaterally. No step-off no crepitation). Absent: respiratory distress, wheezes, rales, rhonchi, stridor Cardiovascular Exam: Present: regular rate, normal rhythm, normal heart sounds. Absent: systolic murmur, diastolic murmur, rubs, gallop, clicks GI/Abdominal exam: Present: soft, normal bowel sounds. Absent: distended, tenderness, guarding, rebound, rigid, bruit, pulsatile mass Extremities exam: Present: normal inspection, full ROM, normal capillary refill. Absent: tenderness, pedal edema, joint swelling, calf tenderness Back exam: Present: normal inspection Neurological exam: Present: alert, oriented X3, CN II-XII intact Psychiatric exam: Present: normal affect, normal mood Skin exam: Present: warm, dry, intact, normal color. Absent: rash Course Vital Signs 03/10/22 03/10/22 03/10/22 08:06 08:25 09:33 Temperature 97.7 F Pulse Rate 68 68 Pulse Rate [ 70 Sitting Pulse Oximetery] Respiratory 18 18 Rate Blood Pressure 116/72 107/74 O2 Sat by Pulse 100 100 Oximetry - Reevaluation(s) Reevaluation #1: 03/10/22 08:39 The patient was offered pain medication she has declined at this time. Chest Pain MDM - MDM Imaging reviewed no acute findings I did discuss the findings with patient presentation is consistent with costochondritis we did discuss treatment options. Patient will be discharged on appropriate medication she will follow up when necessary warm compresses were suggested the effected area Disposition Clinical Impression: Chest wall syndrome, Costochondritis Disposition: HOME SELF-CARE Condition: Good Instructions (If sedation given, give patient instructions): Costochondritis (ED) Prescriptions: predniSONE [Deltasone] 20 mg PO BID #10 tab Ibuprofen [Motrin] 600 mg PO Q6HR PRN #20 tab PRN Reason: Pain Is patient prescribed a controlled substance at d/c from ED?: No Referrals: Nikolay Drake DO [Primary Care Provider] - 1-2 days Decision Date: 03/10/22 Decision Time: 11:03
[2022-03-10 08:51] LABS: Basophils % (A) 1 %; Eosinophils # (A) 0.1 k/uL (0-0.7); Eosinophils % (A) 2 %; HCT 41.1 % (34.0-46.0); Lymphocytes # (A) 1.6 k/uL (1.0-4.8); Lymphocytes % (A) 30 %; MCH 29.5 pg (25.0-35.0); MCV 86.8 fL (80.0-100.0); Mean Platelet Volume 7.7; Monocytes # (A) 0.5 k/uL (0-1.0); Monocytes % (A) 8 %; Neutrophils # (A) 3.1 k/uL (1.3-7.7); Neutrophils % (A) 57 %; Platelet Count 245 k/uL (150-450); RBC 4.74 m/uL (3.80-5.40); RDW 12.6 % (11.5-15.5); WBC 5.4 k/uL (3.8-10.6)
--- NOTE | 2022-03-10 08:59 | XR ---
EXAMINATION TYPE: XR chest 2V DATE OF EXAM: 03/10/2022 COMPARISON: NONE TECHNIQUE: PA and lateral views submitted. HISTORY: Chest pain FINDINGS: The lungs are clear and there is no pneumothorax, pleural effusion, or focal pneumonia. Limited ins piration. Heart size normal. No overt failure. IMPRESSION: 1. No acute process.
[2022-03-10 09:02] LABS: ALT 40 U/L (4-34); AST 32 U/L (14-36); African American GFR (CKD) >90 (>60 ml/min/1.73 sqM); Albumin 3.8 g/dL (3.5-5.0); Alkaline Phosphatase 78 U/L (38-126); Anion Gap 8 mmol/L; Blood Urea Nitrogen 14 mg/dL (7-17); Calcium 8.9 mg/dL (8.4-10.2); Carbon Dioxide 25 mmol/L (22-30); Chloride 103 mmol/L (98-107); Glucose 83 mg/dL (74-99); Lipase 74 U/L (23-300); Magnesium 1.7 mg/dL (1.6-2.3); Non-African American GFR(CKD) >90 (>60 ml/min/1.73 sqM); Potassium 4.3 mmol/L (3.5-5.1); Sodium 136 mmol/L (137-145); Total Bilirubin 0.6 mg/dL (0.2-1.3); Total Protein 6.4 g/dL (6.3-8.2)
[2022-03-10 09:09] LABS: INR 0.9 (<1.2); Partial Thromboplastin Time 24.3 sec (22.0-30.0); Prothrombin Time 10.1 sec (9.0-12.0)
[2022-03-10] MEDS ORDERED: KETOROLAC 15 MG/ML 1 ML VIAL IVP STA (10:30)
[2022-03-10] MEDS ORDERED: methylPREDNISolone SOD SUCCI 125 MG/2 ML VIAL IV STA (11:01)
[2022-03-10 11:50] VITALS: BP 110/76; PULSE 66
== END 2022-03-10 11:48 | disposition home or self-care (01) ==
LOC: EC 08:03
DX: M94.0 Chondrocostal junction syndrome [Tietze] (principal); Z88.8 Allergy status to other drugs, medicaments and biological substances; Z88.2 Allergy status to sulfonamides
CPT/HCPCS: 36415; 93005; 85379; 83880; 80053; 83690; 83735; 84484; 85025; 85610; 85730; 71046; 99285; 96374; 96375; J2930; J1885

== ENCOUNTER 2024-12-05 19:57 | Emergency (ER) | payer BC, OTHER ==
[2024-12-05 21:44] LABS: ALT 37 U/L (4-34); AST 27 U/L (14-36); African American GFR (CKD) >90 (>60 ml/min/1.73 sqM); Albumin 3.9 g/dL (3.5-5.0); Alkaline Phosphatase 86 U/L (38-126); Anion Gap 9 mmol/L; Blood Urea Nitrogen 10 mg/dL (7-17); Carbon Dioxide 26 mmol/L (22-30); Chloride 99 mmol/L (98-107); Glucose 89 mg/dL (74-99); Non-African American GFR(CKD) >90 (>60 ml/min/1.73 sqM); Potassium 3.7 mmol/L (3.5-5.1); Sodium 134 mmol/L (137-145); Total Bilirubin 0.7 mg/dL (0.2-1.3); Total Protein 6.4 g/dL (6.3-8.2)
[2024-12-05 21:47] LABS: Basophils % (A) 0 %; Eosinophils # (A) 0.1 k/uL (0-0.7); Eosinophils % (A) 1 %; HCT 41.5 % (34.0-46.0); HGB 14.2 gm/dL (11.4-16.0); Lymphocytes # (A) 1.7 k/uL (1.0-4.8); Lymphocytes % (A) 20 %; MCH 29.1 pg (25.0-35.0); MCHC 34.2 g/dL (31.0-37.0); MCV 85.3 fL (80.0-100.0); Mean Platelet Volume 7.8; Monocytes # (A) 0.5 k/uL (0-1.0); Monocytes % (A) 6 %; Neutrophils # (A) 6.1 k/uL (1.3-7.7); Neutrophils % (A) 72 %; Platelet Count 264 k/uL (150-450); RBC 4.87 m/uL (3.80-5.40); RDW 12.8 % (11.5-15.5); WBC 8.5 k/uL (3.8-10.6)
--- NOTE | 2024-12-05 21:55 | US ---
EXAMINATION TYPE: Transabdominal DATE OF EXAM: 12/05/2024 9:38 PM COMPARISON: NONE CLINICAL INDICATION: Female, 24 years old with history of possible miscarriage; Patient states confir med IUP at [facility] with low heart tones. States that she had bloodwork done and her HCG dropped from 45,000 to 38,000. Patient is not currently experiencing any bleeding or cramping but is concern ed for miscarriage due to drop in HCG TECHNIQUE: Transvaginal (TV) and Transabdominal (TA) with grayscale and color Doppler imaging includi ng first trimester . FINDINGS: exam slightly limited due to patient body habitus EXAM MEASUREMENTS: GESTATIONAL AGE / DATING Physician Established: Not yet established Dates by LMP: (8 weeks/5 days) EDC: 07/12/2025 Dates by First Scan: No previous this is first scan at this facility Dates by Current Scan for: (6 weeks/2 days) no heart tones visualized MATERNAL ANATOMY Uterus: 9.5 x 5.6 x 5.9cm Right Ovary: 2.8 x 2.3 x 1.5cm Left Ovary: 2.7 x 1.7 x 2.7cm. There is a 1.7 x 1.1 x 1.8cm anechoic area seen within Post CDS / Adnexa: wnl as best visualized Presence of free fluid: trace amount in CDS Presence of corpus luteal cyst: 1.7 x 1.1 x 1.8cm anechoic area in left ovary Presence of subchorionic bleed: There is a 1.8 x 1.4 x 0.8cm hypoechoic area seen to the left of the gestational sac GESTATION / SURVEY CRL: 0.56cm (6 weeks/2 days) Gestational Sac morphology: Normal Yolk Sac (normal less than 6mm): 8mm, enlarged Cardiac Activity/Heart Rate: no heart tones seen on todays exam IUP: No cardiac activity noted on today's scan. Question demise. Date of LMP: 10/05/2024 Beta HcG (if available): 35,000 per patient IMPRESSION: 1. No heart tones suggests demise. Correlate serial beta hCG and/or ultrasound. See above . [facility], , 12/05/2024 9:53 PM
--- NOTE | 2024-12-05 22:50 | ED ---
General Adult HPI - General Chief complaint: Recheck/Abnormal Lab/Rx Stated complaint: 7 weeks ; stomach pain Time Seen by Provider: 12/05/24 20:20 Source: patient Mode of arrival: ambulatory Limitations: no limitations - History of Present Illness Initial comments: 24-year-old female presenting for possible miscarriage. She is about 7 weeks . Patient reports that she has been following with [facility] [employer] [facility] Dr. Landry. This is her first . In the office she was noted to have a low heart rate and they have been monitoring this. She had her hCG rechecked today and it dropped by 7000. She is having no pain or bleeding. She is concerned that she is having a miscarriage and states that she does not want to find out in the office tomorrow and would rather know prior to her scheduled appointment tomorrow. - Related Data Home Medications Medication Instructions Recorded Confirmed norgestimate-ethinyl estradioL 1 tab PO DAILY 08/13/20 03/10/22 [Sprintec 28 Day Tablet] Albuterol Sulfate [Proair Hfa] 2 puff INHALATION RT-Q6H PRN 03/10/22 03/10/22 Clindamycin Phosphate 1 applic TOPICAL BID PRN 03/10/22 03/10/22 Spironolactone [Aldactone] 75 mg PO DAILY 03/10/22 03/10/22 metFORMIN HCL 1,000 mg PO BID 03/10/22 03/10/22 Previous Rx's Medication Instructions Recorded Ibuprofen [Motrin] 600 mg PO Q6HR PRN #20 tab 03/10/22 predniSONE [Deltasone] 20 mg PO BID #10 tab 03/10/22 Allergies Allergy/AdvReac Type Severity Reaction Status Date / Time metoclopramide HCl Allergy Rapid Verified 12/05/24 20:14 [From Reglan] Heart Rate Sulfa (Sulfonamide Allergy Rash/Hives Verified 12/05/24 20:14 Antibiotics) sumatriptan [From Imitrex] Allergy Unknown Verified 12/05/24 20:14 diphenhydramine HCl AdvReac Unknown Verified 12/05/24 20:14 [From Benadryl] Review of Systems ROS Statement: Those systems with pertinent positive or pertinent negative responses have been documented in the HPI. ROS Other: All systems not noted in ROS Statement are negative. Past Medical History Past Medical History: No Reported History Additional Past Medical History / Comment(s): ciarri malformation , migraines, eds. PCOS History of Any Multi-Drug Resistant Organisms: None Reported Past Surgical History: Cholecystectomy, Ear Surgery Additional Past Surgical History / Comment(s): tubes in ears, bilateral wrist fractures, tethered spinal cord surgery, granuloma removed from jaw 2018 Past Psychological History: Anxiety Smoking Status: Never smoker Past Alcohol Use History: None Reported Past Drug Use History: None Reported - Past Family History Mother Additional Family Medical History / Comment(s): chiari General Exam Limitations: no limitations General appearance: alert, in no apparent distress Head exam: Present: atraumatic, normocephalic, normal inspection Eye exam: Present: normal appearance, EOMI Neck exam: Present: normal inspection. Absent: meningismus Respiratory exam: Present: normal lung sounds bilaterally. Absent: respiratory distress, wheezes, rales, rhonchi, stridor Cardiovascular Exam: Present: regular rate, normal rhythm, normal heart sounds. Absent: systolic murmur, diastolic murmur, rubs, gallop, clicks GI/Abdominal exam: Present: soft. Absent: distended, tenderness, guarding, rebound, rigid Neurological exam: Present: alert, oriented X3 Psychiatric exam: Present: normal affect, normal mood Skin exam: Present: warm, dry Course Vital Signs 12/05/24 12/05/24 20:10 23:02 Temperature 98 F 97.9 F Pulse Rate 85 78 Respiratory 20 16 Rate Blood Pressure 131/91 110/77 O2 Sat by Pulse 98 100 Oximetry Medical Decision Making - Medical Decision Making Was pt. sent in by a medical professional or institution (, PA, RADIO TECHNICIAN, urgent care, hospital, or [place] health care facility...) When possible be specific @ -No Did you speak to anyone other than the patient for history (EMS, parent, family, police, friend...)? What history was obtained from this source @ -No Did you review nursing and triage notes (agree or disagree)? Why? @ -I reviewed and agree with nursing and triage notes Were old charts reviewed (outside hosp., previous admission, EMS record, old EKG, old radiological studies, urgent care reports/EKG's, [place] health care facility records)? Report findings @ -No old charts were reviewed Differential Diagnosis (chest pain, altered mental status, abdominal pain women, abdominal pain men, vaginal bleeding, weakness, fever, dyspnea, syncope, headache, dizziness, GI bleed, back pain, seizure, CVA, palpatations, mental health, musculoskeletal)? @ -Differential includes threatened , missed , spontaneous , not an all-inclusive list EKG interpreted by me (3pts min.). @ -As above X-rays interpreted by me (1pt min.). @ -None done CT interpreted by me (1pt min.). @ -None done U/S interpreted by me (1pt. min.). @ -On ultrasound no heart tones suggest demise. What testing was considered but not performed or refused? (CT, X-rays, U/S, labs)? Why? @ -None What meds were considered but not given or refused? Why? @ -None Did you discuss the management of the patient with other professionals (professionals i.e. , PA, RADIO TECHNICIAN, lab, RT, psych nurse, social sciences lecturer, pinking sewing machine operator, teacher, nuclear officer, caser shoe parts)? Give summary @ -No Was smoking cessation discussed for >3mins.? @ -No Was critical care preformed (if so, how long)? @ -No Were there social determinants of health that impacted care today? How? (Homelessness, low income, unemployed, alcoholism, drug addiction, transportation, low edu. Level, literacy, decrease access to med. care, group home, rehab)? @ -No Was there de-escalation of care discussed even if they declined (Discuss DNR or withdrawal of care, Hospice)? DNR status @ -No What co-morbidities impacted this encounter? (DM, HTN, Smoking, COPD, CAD, Cancer, CVA, ARF, Chemo, Hep., AIDS, mental health diagnosis, sleep apnea, m orbid obesity)? @ -None Was patient admitted / discharged? Hospital course, mention meds given and route, prescriptions, significant lab abnormalities, going to OR and other pertinent info. @ -24-year-old female presenting for possible miscarriage. She is having no bleeding or pain, she had her hCG rechecked today and it dropped by 7000. History and physical examination are conducted. No leukocytosis or anemia. hCG 45,581. Ultrasound shows no heart tones which is suggestive of demise. Patient is educated on today's findings. She has an appointment scheduled with her [facility] [facility] Dr. Landry tomorrow that she will follow-up at. Report back to ER with any new or worsening symptoms. Discussed return parameters and answered all questions. Patient conveyed verbal understanding and agreed to the plan. I discussed this case in detail with my attending Dr. Julien Undiagnosed new problem with uncertain prognosis? @ -No Drug Therapy requiring intensive monitoring for toxicity (Heparin, Nitro, Insulin, Cardizem)? @ -No Were any procedures done? @ -No Diagnosis/symptom? @ -Spontaneous Acute, or Chronic, or Acute on Chronic? @ -Acute Uncomplicated (without systemic symptoms) or Complicated (systemic symptoms)? @ -Uncomplicated Side effects of treatment? @ -No Exacerbation, Progression, or Severe Exacerbation? @ -No Poses a threat to life or bodily function? How? (Chest pain, [place], [place], pneumonia, PE, COPD, DKA, ARF, appy, cholecystitis, CVA, Diverticulitis, Homicidal, Suicidal, threat to staff... and all critical care pts) @ -Low likelihood at this time - Lab Data Result diagrams: 12/05/24 20:58 12/05/24 20:58 Lab Results 12/05/24 12/05/24 Range/Units 20:58 20:58 WBC 8.5 (3.8-10.6) k/uL RBC 4.87 (3.80-5.40) m/uL Hgb 14.2 (11.4-16.0) gm/dL Hct 41.5 (34.0-46.0) % MCV 85.3 (80.0-100.0) fL MCH 29.1 (25.0-35.0) pg MCHC 34.2 (31.0-37.0) g/dL RDW 12.8 (11.5-15.5) % Plt Count 264 (150-450) k/uL MPV 7.8 Neutrophils % 72 % Lymphocytes % 20 % Monocytes % 6 % Eosinophils % 1 % Basophils % 0 % Neutrophils # 6.1 (1.3-7.7) k/uL Lymphocytes # 1.7 (1.0-4.8) k/uL Monocytes # 0.5 (0-1.0) k/uL Eosinophils # 0.1 (0-0.7) k/uL Basophils # 0.0 (0-0.2) k/uL Sodium 134 L (137-145) mmol/L Potassium 3.7 (3.5-5.1) mmol/L Chloride 99 (98-107) mmol/L Carbon Dioxide 26 (22-30) mmol/L Anion Gap 9 mmol/L BUN 10 (7-17) mg/dL Creatinine 0.53 (0.52-1.04) mg/dL Est GFR (CKD-EPI)AfAm >90 (>60 ml/min/1.73 sqM) Est GFR (CKD-EPI)NonAf >90 (>60 ml/min/1.73 sqM) Glucose 89 (74-99) mg/dL Calcium 9.0 (8.4-10.2) mg/dL Total Bilirubin 0.7 (0.2-1.3) mg/dL AST 27 (14-36) U/L ALT 37 H (4-34) U/L Alkaline Phosphatase 86 (38-126) U/L Total Protein 6.4 (6.3-8.2) g/dL Albumin 3.9 (3.5-5.0) g/dL HCG, Quant 32851.0 mIU/mL Disposition Clinical Impression: Miscarriage Disposition: HOME SELF-CARE Condition: Fair Instructions (If sedation given, give patient instructions): Miscarriage (ED) Additional Instructions: Follow-up with your OB at your appointment tomorrow. Report back to ER with any new or worsening symptoms. Is patient prescribed a controlled substance at d/c from ED?: No Referrals: Edward Eason MD [Primary Care Provider] - 1-2 days Leeann Landry DO [Doctor of Osteopathic Medicine] - 1-2 days Time of Disposition: 22:50
[2024-12-05 23:03] VITALS: BP 110/77; PULSE 78; RESP 16; TEMP 97.9
== END 2024-12-05 23:03 | disposition home or self-care (01) ==
LOC: EC 19:57
DX: O03.9 Complete or unspecified spontaneous abortion without complication (principal); Z88.8 Allergy status to other drugs, medicaments and biological substances; Z88.2 Allergy status to sulfonamides
CPT/HCPCS: 36415; 76801; 76817; 80053; 84702; 85025; 99284

== ENCOUNTER → 2024-12-14 | Outpatient (CLI) | payer BC ==
[2024-12-15 06:21] LABS: Basophils # (A) 0.04 X 10*3/uL (0.00-0.10); Basophils % (A) 0.7 %; Eosinophils # (A) 0.09 X 10*3/uL (0.04-0.35); Eosinophils % (A) 1.5 %; HCT 44.8 % (37.2-46.3); HGB 14.8 g/dL (12.0-15.0); Lymphocytes # (A) 1.52 X 10*3/uL (0.90-5.00); Lymphocytes % (A) 24.9 %; MCH 28.7 pg (27.0-32.0); MCV 86.8 FL (80.0-97.0); Mean Platelet Volume 10.4 FL (9.5-12.2); Monocytes # (A) 0.49 X 10*3/uL (0.20-1.00); NRBC Per 100 WBC 0 X 10*3/uL (0.00-0.01); Neutrophils # (A) 3.95 X 10*3/uL (1.80-7.70); Neutrophils % (A) 64.6 %; Platelet Count 274 X 10*3/uL (140-440); RBC 5.16 X 10*6/uL (4.10-5.20); RDW 12.3 % (11.5-14.5); WBC 6.11 X 10*3/uL (4.50-10.00)
== END | disposition home or self-care (01) ==
LOC: LABPAT 09:58
PROVIDERS: ATTEND Obstetrics & Gynecology
DX: Z01.812 Encounter for preprocedural laboratory examination (principal); O02.1 Missed abortion
CPT/HCPCS: 36415; 85025; 86850; 86900; 86901

== ENCOUNTER 2024-12-16 07:28 | Day surgery (SDC) | payer BC, OTHER ==
[2024-12-13 08:44] VITALS: BMI 42.0
[~2024-12-16 07:28] MED LIST: LACTATED RINGERS 1,000 ML IV SCH; Pre Op ABX Message 1 EACH MISC MISCELLANE ONE
--- NOTE | 2024-12-16 07:30 | P.HPOB ---
History of Present Illness H&P Date: 12/16/24 Chief Complaint: missed ab 24 year old presents for suction D&C after being diagnosed with a missed . Review of Systems All systems: negative Constitutional: Denies chills, Denies fever Eyes: denies blurred vision, denies pain Ears, nose, mouth and throat: Denies headache, Denies sore throat Cardiovascular: Denies chest pain, Denies shortness of breath Respiratory: Denies cough Gastrointestinal: Denies abdominal pain, Denies diarrhea, Denies nausea, Denies vomiting Genitourinary: Denies dysuria, Denies hematuria Musculoskeletal: Denies myalgias Integumentary: Denies pruritus, Denies rash Neurological: Denies numbness, Denies weakness Psychiatric: Denies anxiety, Denies depression Endocrine: Denies fatigue, Denies weight change Past Medical History Past Medical History: No Reported History Additional Past Medical History / Comment(s): Telma-Danlos syndromes (EDS),chiari malformation, migraines,. PCOS, bilateral wrist fractures-mult fratures over the years History of Any Multi-Drug Resistant Organisms: None Reported Past Surgical History: Cholecystectomy, Ear Surgery Additional Past Surgical History / Comment(s): tubes in ears, tethered spinal cord surgery, granuloma removed from jaw 2018,chiari malformation decompression Past Anesthesia/Blood Transfusion Reactions: No Reported Reaction Additional Past Anesthesia/Blood Transfusion Reaction / Comment(s): no hx blood transfusion Smoking Status: Never smoker - Past Family History Mother Additional Family Medical History / Comment(s): chiari Medications and Allergies Home Medications Medication Instructions Recorded Confirmed Type Citalopram Hydrobromide [CeleXA] 10 mg PO HS 12/13/24 12/13/24 History Allergies Allergy/AdvReac Type Severity Reaction Status Date / Time metoclopramide HCl Allergy Rapid Verified 12/13/24 08:32 [From Reglan] Heart Rate Sulfa (Sulfonamide Allergy Rash/Hives Verified 12/13/24 08:32 Antibiotics) sumatriptan [From Imitrex] Allergy seizure Verified 12/13/24 08:32 like activity diphenhydramine HCl AdvReac twitching Verified 12/13/24 08:32 [From Benadryl] Exam Osteopathic Statement: *. No significant issues noted on an osteopathic structural exam other than those noted in the History and Physical/Consult. Heart: Regular rate and rhythm Lungs: Clear to auscultation bilaterally Abdomen: Soft, nontender Extremities: Negative Homans sign Assessment and Plan (1) Missed Current Visit: Yes Status: Acute Code(s): O02.1 - MISSED SNOMED Code(s): 36504103 Plan: 1. suction D&C
[2024-12-16] MEDS: IV FLUID CONTINUATION 1,000 ML IV ONE (08:02)
[2024-12-16] MEDS: DEXAMETHASONE SOD PHOSPHATE 4 MG/ML 1 ML VIAL IV ONE (08:08)
[2024-12-16] MEDS: ONDANSETRON 4 MG/2 ML VIAL IVP ONE (08:08)
[2024-12-16] MEDS: SCOPOLAMINE 1 MG/72 HR PATCH TRANSDERM ONE (08:08)
[2024-12-16] MEDS: MIDAZOLAM 2 MG/2 ML VIAL IV PRN (08:40)
[2024-12-16] MEDS ORDERED: PROPOFOL 10 MG/ML 20 ML VIAL IV ONE (09:00)
[2024-12-16] MEDS ORDERED: LIDOCAINE 1% INJ 10MG/ML (20 ML MDV) ONE (09:00)
[2024-12-16] MEDS ORDERED: SUCCINYLCHOLINE CHLORIDE 200 MG/10 ML VIAL IV ONE (09:00)
[2024-12-16] MEDS ORDERED: MIDAZOLAM 2 MG/2 ML VIAL ONE (09:00)
[2024-12-16] MEDS ORDERED: KETOROLAC 15 MG/ML 1 ML VIAL ONE (09:00)
[2024-12-16] MEDS ORDERED: fentaNYL (PF) 50 MCG/ML 2 ML AMP ONE (09:00)
--- NOTE | 2024-12-16 09:32 | P.OP ---
Date of Procedure: 12/16/24 Preoperative Diagnosis: 1. missed Postoperative Diagnosis: 1. missed Procedure(s) Performed: suction D&C Anesthesia: HAYDER Surgeon: Leeann Landry Estimated Blood Loss (ml): 200 IV fluids (ml): 1,200 Urine output (ml): 50 Pathology: other (uterine contents/POC) Condition: stable Disposition: PACU Operative Findings: moderate amount POC Description of Procedure: Patient taken the operating room where general anesthesia was obtained without difficulty. She is prepped draped in normal sterile fashion in a dorsal position, legs placed in the Jose A stirrups. Bladder was drained of all urine. Weighted speculum placed in vagina the anterior lip of the cervix was grasped with a single-tooth tenaculum. The cervix was dilated with a #9 Hegar dilator. The #9 curved suction curette was introduced into the uterus and passed several times to remove tissue and blood. The sharp curette was used to gently ensure all tissue was removed. Suction curette was introduced a few more times. Hemostasis was assured. All instruments removed from the vagina. Patient Toller procedure well. Sponge and instrument counts were correct x 2. She was taken to recovery in stable condition.
[2024-12-16 09:48] VITALS: TEMP 96.8
[2024-12-16] MEDS: HYDROmorphone 0.5 MG/0.5 ML SYRINGE IVP PRN (10:14)
[2024-12-16 10:43] VITALS: RESP 14
[2024-12-16 11:16] VITALS: BP 106/71; PULSE 65
== END 2024-12-16 11:24 | disposition home or self-care (01) ==
LOC: OR 07:28
PROVIDERS: ATTEND Obstetrics & Gynecology
DX: O02.1 Missed abortion (principal); Z88.1 Allergy status to other antibiotic agents; Z88.2 Allergy status to sulfonamides
CPT/HCPCS: 59820; J2250; J0330; J1100; J2405; J2003; J3010; J1885; J2704; J1171

== ENCOUNTER 2025-03-12 14:15 | Emergency (ER) | payer BC, OTHER ==
[2025-03-12 14:20] VITALS: TEMP 98.1
--- NOTE | 2025-03-12 14:46 | ED ---
General Adult HPI - General Chief complaint: Vaginal Bleeding Stated complaint: cramping and spotting Time Seen by Provider: 03/12/25 14:24 Source: patient, RN notes reviewed Mode of arrival: ambulatory Limitations: no limitations - History of Present Illness Initial comments: 24-year-old female with history of PCOS, [id number], presenting to the emergency department at approximately 3 to 4 weeks with her last menstrual period on 01/21/2025 for complaints of pink discharge and light vaginal bleeding that started yesterday night. Patient states that she noticed that there is light pink on the toilet paper after she is done wiping. She endorses mild lower abdominal cramping. She denies fevers, chills, dysuria. Patient does have a history of a miscarriage in November of this year where she underwent a D&C. Patient follows with [facility]. - Related Data Home Medications Medication Instructions Recorded Confirmed Citalopram Hydrobromide [CeleXA] 10 mg PO HS 12/13/24 12/16/24 Previous Rx's Medication Instructions Recorded Ibuprofen [Motrin] 600 mg PO Q6HR PRN #30 tab 12/16/24 Allergies Allergy/AdvReac Type Severity Reaction Status Date / Time metoclopramide HCl Allergy Rapid Verified 03/12/25 14:20 [From Reglan] Heart Rate Sulfa (Sulfonamide Allergy Rash/Hives Verified 03/12/25 14:20 Antibiotics) sumatriptan [From Imitrex] Allergy seizure Verified 03/12/25 14:20 like activity diphenhydramine HCl AdvReac twitching Verified 03/12/25 14:20 [From Benadryl] Review of Systems ROS Statement: Those systems with pertinent positive or pertinent negative responses have been documented in the HPI. ROS Other: All systems not noted in ROS Statement are negative. Past Medical History Past Medical History: No Reported History Additional Past Medical History / Comment(s): Telma-Danlos syndromes (EDS),chiari malformation, migraines,. PCOS, bilateral wrist fractures-mult fratures over the years History of Any Multi-Drug Resistant Organisms: None Reported Past Surgical History: Cholecystectomy, Ear Surgery Additional Past Surgical History / Comment(s): tubes in ears, tethered spinal cord surgery, granuloma removed from jaw 2017,chiari malformation decompression Past Anesthesia/Blood Transfusion Reactions: No Reported Reaction Additional Past Anesthesia/Blood Transfusion Reaction / Comment(s): no hx blood transfusion Past Psychological History: Anxiety Smoking Status: Never smoker - Past Family History Mother Additional Family Medical History / Comment(s): chiari General Exam Limitations: no limitations General appearance: alert, in no apparent distress Neck exam: Present: normal inspection. Absent: tenderness, meningismus, lymphadenopathy Respiratory exam: Present: normal lung sounds bilaterally. Absent: respiratory distress, wheezes, rales, rhonchi, stridor Cardiovascular Exam: Present: regular rate, normal rhythm, normal heart sounds. Absent: systolic murmur, diastolic murmur, rubs, gallop, clicks GI/Abdominal exam: Present: soft, normal bowel sounds. Absent: distended, tenderness, guarding, rebound, rigid Extremities exam: Present: normal inspection, full ROM, normal capillary refill. Absent: tenderness, pedal edema, joint swelling, calf tenderness Back exam: Present: normal inspection. Absent: CVA tenderness (R), CVA tenderness (L) Course Vital Signs 03/12/25 03/12/25 14:18 16:39 Temperature 98.1 F 98.1 F Pulse Rate 101 H 87 Respiratory 18 16 Rate Blood Pressure 125/88 125/83 O2 Sat by Pulse 99 100 Oximetry Medical Decision Making - Medical Decision Making Was pt. sent in by a medical professional or institution ([facility], [employer], urgent care, hospital, or [facility]...) When possible be specific @ -No Did you speak to anyone other than the patient for history (EMS, parent, family, police, friend...)? What history was obtained from this source @ -No Did you review nursing and triage notes (agree or disagree)? Why? @ -I reviewed and agree with nursing and triage notes Were old charts reviewed (outside hosp., previous admission, EMS record, old EKG, old radiological studies, urgent care reports/EKG's, [facility] records)? Report findings @ -Reviewed blood work from November 2024 which revealed patient has in a positive blood type. Differential Diagnosis (chest pain, altered mental status, abdominal pain women, abdominal pain men, vaginal bleeding, weakness, fever, dyspnea, syncope, headache, dizziness, GI bleed, back pain, seizure, CVA, palpatations, mental health, musculoskeletal)? @ -Differential Vaginal Bleeding: Spontaneous , threatened , molar , ectopic , bloody show, incompetent cervix, abruptioplacenta, placenta previa, uterine rupture, dysfunctional uterine bleeding, hemorrhage, uterine fibroids, this is not meant to be an all-inclusive list. EKG interpreted by me (3pts min.). @ -none X-rays interpreted by me (1pt min.). @ -None done CT interpreted by me (1pt min.). @ -None done U/S interpreted by me (1pt. min.). @ -Transabdominal ultrasound completed reveals a intrauterine gestational sac with yolk sac corresponding to age of 5 weeks 2 days with no identified pole or heart tones at this time with a small subchorionic hemorrhage identified, potential right ovarian versus paraovarian complex cystic lesion with small amount of simple appearing fluid within the right adnexa. What testing was considered but not performed or refused? (CT, X-rays, U/S, labs)? Why? @ -None What meds were considered but not given or refused? Why? @ -None Did you discuss the management of the patient with other professionals (professionals i.e. , PA, [employer], lab, RT, psych nurse, social insurance adviser, department of mathematics chair, teacher, employee service officer, case assembler)? Give summary @ -No Was smoking cessation discussed for >3mins.? @ -No Was critical care preformed (if so, how long)? @ -No Were there social determinants of health that impacted care today? How? (Homele ssness, low income, unemployed, alcoholism, drug addiction, transportation, low edu. Level, literacy, decrease access to med. care, senior living, rehab)? @ -No Was there de-escalation of care discussed even if they declined (Discuss DNR or withdrawal of care, Hospice)? DNR status @ -No What co-morbidities impacted this encounter? (DM, HTN, Smoking, COPD, CAD, Cancer, CVA, ARF, Chemo, Hep., AIDS, mental health diagnosis, sleep apnea, morbid obesity)? @ -None Was patient admitted / discharged? Hospital course, mention meds given and route, prescriptions, significant lab abnormalities, going to OR and other pertinent info. @ - Discharge. 24-year-old female presenting with complaints of vaginal bleeding during . Overall patient is well-appearing in no signs of distress. Patient has no abdominal tenderness on examination. Laboratory studies including CBC and CMP is unremarkable. Patient's hCG level is 2247. Urinalysis reveals no signs of infection, no blood. Ultrasound reveals a intrauterine gestational sac and yolk sac within age of 5 weeks 2 days with no heart tones. Small subchorionic hemorrhage. Patient's blood type is A+. Patient stable for discharge. She is provided with prescription to repeat hCG testing in 2 days. Recommend repeat ultrasound in 1 week. Return parameters discussed. Case discussed with my today Dr. Murphy. Undiagnosed new problem with uncertain prognosis? @ -No Drug Therapy requiring intensive monitoring for toxicity (Heparin, Nitro, Insulin, Cardizem)? @ -No Were any procedures done? @ -No Diagnosis/symptom? @ -Threatened miscarriage, subchorionic hemorrhage Acute, or Chronic, or Acute on Chronic? @ -Acute Uncomplicated (without systemic symptoms) or Complicated (systemic symptoms)? @ -Uncomplicated Side effects of treatment? @ -No Exacerbation, Progression, or Severe Exacerbation? @ -No Poses a threat to life or bodily function? How? (Chest pain, [place], [place], pneumonia, PE, COPD, DKA, ARF, appy, cholecystitis, CVA, Diverticulitis, Homicidal, Suicidal, threat to staff... and all critical care pts) @ -No - Lab Data Result diagrams: 03/12/25 14:54 03/12/25 14:54 Lab Results 03/12/25 03/12/25 03/12/25 Range/Units 14:51 14:54 14:54 WBC 7.09 (4.50-10.00) 10*3/uL RBC 4.78 (4.10-5.20) 10*6/uL Hgb 13.8 (12.0-15.0) g/dL Hct 39.9 (37.2-46.3) % MCV 83.5 (80.0-97.0) fL MCH 28.9 (27.0-32.0) pg MCHC 34.6 (32.0-37.0) g/dL Plt Count 311 (140-440) 10*3/uL MPV 9.7 (9.5-12.2) fL Immature Gran % (Auto) 0.3 % Neutrophils % 62.9 % Lymphocytes % 24.7 % Monocytes % 10.4 % Eosinophils % 1.3 % Basophils % 0.4 % Immature Gran # 0.02 (0.00-0.04) 10*3/uL Neutrophils # 4.46 (1.80-7.70) 10*3/uL Lymphocytes # 1.75 (0.90-5.00) 10*3/uL Monocytes # 0.74 (0.20-1.00) 10*3/uL Eosinophils # 0.09 (0.04-0.35) 10*3/uL Basophils # 0.03 (0.00-0.10) 10*3/uL Sodium 138 (137-145) mmol/L Potassium 3.9 (3.5-5.1) mmol/L Chloride 101 (98-107) mmol/L Carbon Dioxide 26 (22-30) mmol/L Anion Gap 11 mmol/L BUN 6 L (7-17) mg/dL Creatinine 0.55 (0.52-1.04) mg/dL Est GFR (CKD-EPI)AfAm >90 (>60 ml/min/1.73 sqM) Est GFR (CKD-EPI)NonAf >90 (>60 ml/min/1.73 sqM) Glucose 97 (74-99) mg/dL Calcium 9.5 (8.4-10.2) mg/dL Total Bilirubin 0.5 (0.2-1.3) mg/dL AST 44 H (14-36) U/L ALT 80 H (4-34) U/L Alkaline Phosphatase 87 (38-126) U/L Total Protein 6.5 (6.3-8.2) g/dL Albumin 4.1 (3.5-5.0) g/dL HCG, Quant 2247.1 mIU/mL Urine Color Colorless Urine Appearance Clear (Clear) Urine pH 5.0 (5.0-8.0) Ur Specific [place] 1.002 (1.001-1.035) Urine Protein Negative (Negative) Urine Glucose (UA) Negative (Negative) Urine Ketones Negative (Negative) Urine Blood Negative (Negative) Urine Nitrite Negative (Negative) Urine Bilirubin Negative (Negative) Urine Urobilinogen <2.0 (<2.0) mg/dL Ur Leukocyte Esterase Negative (Negative) Disposition Clinical Impression: Threatened miscarriage, Subchorionic hemorrhage Disposition: HOME SELF-CARE Condition: Good Instructions (If sedation given, give patient instructions): Threatened Miscarriage (ED) Additional Instructions: Please return to the Emergency Department if symptoms worsen or any other concerns. Please repeat hCG level in 48 hours. Repeat ultrasound testing in 1 week. Is patient prescribed a controlled substance at d/c from ED?: No Referrals: Edward Eason MD [Primary Care Provider] - 1-2 days Time of Disposition: 16:21
[2025-03-12 14:56] LABS: Bilirubin,Urine Negative (Negative); Blood,Urine Negative (Negative); Color,Urine Colorless; Glucose,Urine (UA) Negative (Negative); Ketones,Urine Negative (Negative); Leukocyte Esterase,Urine Negative (Negative); Nitrite,Urine Negative (Negative); PH, Urine 5.0 (5.0-8.0); Protein,Urine Negative (Negative); Specific Gravity,Urine 1.002 (1.001-1.035); Urobilinogen,Urine <2.0 mg/dL (<2.0)
[2025-03-12 15:01] LABS: Basophils # (A) 0.03 10*3/uL (0.00-0.10); Basophils % (A) 0.4 %; Eosinophils # (A) 0.09 10*3/uL (0.04-0.35); Eosinophils % (A) 1.3 %; HCT 39.9 % (37.2-46.3); HGB 13.8 g/dL (12.0-15.0); Lymphocytes # (A) 1.75 10*3/uL (0.90-5.00); Lymphocytes % (A) 24.7 %; MCH 28.9 pg (27.0-32.0); MCHC 34.6 g/dL (32.0-37.0); MCV 83.5 fL (80.0-97.0); Monocytes # (A) 0.74 10*3/uL (0.20-1.00); Monocytes % (A) 10.4 %; Neutrophils # (A) 4.46 10*3/uL (1.80-7.70); Neutrophils % (A) 62.9 %; Platelet Count 311 10*3/uL (140-440); RBC 4.78 10*6/uL (4.10-5.20); RDW 12.5 % (11.5-14.5); WBC 7.09 10*3/uL (4.50-10.00)
[2025-03-12 15:12] LABS: ALT 80 U/L (4-34); AST 44 U/L (14-36); African American GFR (CKD) >90 (>60 ml/min/1.73 sqM); Albumin 4.1 g/dL (3.5-5.0); Alkaline Phosphatase 87 U/L (38-126); Anion Gap 11 mmol/L; Blood Urea Nitrogen 6 mg/dL (7-17); Calcium 9.5 mg/dL (8.4-10.2); Carbon Dioxide 26 mmol/L (22-30); Chloride 101 mmol/L (98-107); Glucose 97 mg/dL (74-99); Non-African American GFR(CKD) >90 (>60 ml/min/1.73 sqM); Potassium 3.9 mmol/L (3.5-5.1); Sodium 138 mmol/L (137-145); Total Protein 6.5 g/dL (6.3-8.2)
[2025-03-12 15:29] LABS: HCG,Quantitative Serum 2247.1 mIU/mL
--- NOTE | 2025-03-12 15:49 | US ---
EXAMINATION TYPE: Transabdominal DATE OF EXAM: 03/12/2025 3:22 PM COMPARISON: No prior US for this gestation. US 12/05/24 CLINICAL INDICATION: Female, 24 years old with history of 4 weeks, bleeding, cramp, hx miscarriage ; Hx miscarriage. . Some cramping, light pink spotting. TECHNIQUE: Transvaginal (TV) and Transabdominal (TA) with grayscale and color Doppler imaging includi ng first trimester . FINDINGS: EXAM MEASUREMENTS: GESTATIONAL AGE / DATING Physician Established: Not yet established Dates by LMP: Unknown Dates by First Scan: This is first scan for this gestation Dates by Current Scan for: (5 weeks/2 days) EDC: 11/10/2025 MATERNAL ANATOMY Uterus: 8.5 x 5.1 x 4.6 cm. Heterogeneous cervix. Right Ovary: Not seen with certainty. Complex area seen in right adnexa, however, no normal ovarian t issue seen. Question ovary versus other. Left Ovary: 3.0 x 1.5 x 1.6 cm Post CDS / Adnexa: Fluid seen in right adnexa: 1.7 x 2.3 x 2.8 cm. Complex area seen in right adnexa, unknown etiology: 4.4 x 2.8 x 2.1 cm. Presence of free fluid: Yes in right adnexa Presence of corpus luteal cyst: not seen Presence of subchorionic bleed: Complex area seen adjacent to the gestational sac: 0.7 x 0.3 x 0.3 cm . GESTATION / SURVEY CRL: Not seen Gestational Sac morphology: Gestational Sac MSD: 0.64 cm (5 weeks/2 days) Yolk Sac (normal less than 6mm): 2.7 mm Cardiac Activity/Heart Rate: No CRL seen IUP: Gestational sac and yolk sac seen at this time. Date of LMP: Unknown Beta HcG (if available): Not available IMPRESSION: 1. Intrauterine gestational sac with yolk sac identified corresponding to ultrasound age of 5 weeks 2 days. No pole or heart tones are identified at this time likely due to early gestational age. Small subchorionic hemorrhage identified. Recommend follow-up with pelvic ultrasound and serial beta hCG to ensure further development of the fetus. 2. Questionable right ovarian versus paraovarian complex cystic lesion. Attention on follow-up ultras ound. 3. Small amount of simple appearing fluid within the right adnexa. [facility], , 03/12/2025 3:47 PM
[2025-03-12 16:41] VITALS: BP 125/83; PULSE 87; RESP 16
== END 2025-03-12 16:40 | disposition home or self-care (01) ==
LOC: EC 14:15
DX: O20.0 Threatened abortion (principal); O20.8 Other hemorrhage in early pregnancy; Z88.1 Allergy status to other antibiotic agents; Z88.2 Allergy status to sulfonamides; Z88.8 Allergy status to other drugs, medicaments and biological substances; Z3A.01 Less than 8 weeks gestation of pregnancy
CPT/HCPCS: 36415; 76801; 76817; 80053; 81003; 84702; 85025; 99284

== ENCOUNTER → 2025-03-15 | Outpatient (CLI) | payer BC, OTHER | END | disposition home or self-care (01) | LOC: LABWHC1 08:06 | PROVIDERS: ATTEND Physician Assistant | DX: O20.0 Threatened abortion (principal) | CPT/HCPCS: 36415; 84702 ==

== ENCOUNTER → 2025-03-20 | Outpatient (CLI) | payer BC, OTHER | END | disposition home or self-care (01) | LOC: LABWHC1 10:01 | PROVIDERS: ATTEND Obstetrics & Gynecology | DX: O20.0 Threatened abortion (principal); Z3A.00 Weeks of gestation of pregnancy not specified | CPT/HCPCS: 36415; 84702 ==

== ENCOUNTER → 2025-04-01 | Outpatient (CLI) | payer BC, OTHER ==
[2025-04-02 03:18] LABS: HCT 41.5 % (37.2-46.3); HGB 13.8 g/dL (12.0-15.0); MCH 28.5 pg (27.0-32.0); MCHC 33.3 g/dL (32.0-37.0); MCV 85.7 FL (80.0-97.0); NRBC Per 100 WBC 0 X 10*3/uL (0.00-0.01); Platelet Count 300 X 10*3/uL (140-440); RBC 4.84 X 10*6/uL (4.10-5.20); RDW 12.9 % (11.5-14.5); WBC 7.24 X 10*3/uL (4.50-10.00)
[2025-04-02 04:46] LABS: Cardiolipin Ab IgG Interp Negative (Negative); Cardiolipin Ab IgM Interp Negative (Negative)
[2025-04-02 12:49] LABS: APTT 38 Sec(s) (<43); Dilute Russell Viper Venom 37 Sec(s) (<44)
== END | disposition home or self-care (01) ==
LOC: LABWHC1 16:24
PROVIDERS: ATTEND Obstetrics & Gynecology
DX: Z01.812 Encounter for preprocedural laboratory examination (principal); O02.1 Missed abortion; N96 Recurrent pregnancy loss
CPT/HCPCS: 36415; 85027; 85613; 85730; 86147; 86850; 86900; 86901

== ENCOUNTER 2025-04-03 06:18 | Day surgery (SDC) | payer BC, OTHER ==
[~2025-04-03 06:18] MED LIST changes: +DOXYCYCLINE 100 MG CAP PO PRN; -LACTATED RINGERS 1,000 ML IV SCH; -Pre Op ABX Message 1 EACH MISC MISCELLANE ONE
[2025-04-03] MEDS: LACTATED RINGERS 1,000 ML BAG IV STA (06:55)
[2025-04-03] MEDS: IV FLUID CONTINUATION 1,000 ML IV ONE (06:55)
[2025-04-03] MEDS: LIDOCAINE 1% (10MG/ML) FOR IV START INTRADERMA STA (06:55)
[2025-04-03] MEDS: DOXYCYCLINE 100 MG TABLET PO PRN (07:14)
[2025-04-03] MEDS: ONDANSETRON 4 MG/2 ML VIAL IVP STA (07:15)
[2025-04-03] MEDS: FAMOTIDINE 20 MG/2 ML VIAL IV STA (07:15)
[2025-04-03] MEDS: DEXAMETHASONE SOD PHOSPHATE 4 MG/ML 1 ML VIAL IVP STA (07:16)
[2025-04-03 07:20] LABS: Glucose,Whole Blood 103 mg/dL (70-110)
[2025-04-03] MEDS ORDERED: LIDOCAINE 1% INJ 10MG/ML (20 ML MDV) ONE (07:20)
[2025-04-03] MEDS ORDERED: fentaNYL (PF) 50 MCG/ML 2 ML AMP ONE (07:20)
[2025-04-03] MEDS ORDERED: PROPOFOL 10 MG/ML 20 ML VIAL IV ONE (07:20)
[2025-04-03] MEDS ORDERED: MIDAZOLAM 2 MG/2 ML VIAL ONE (07:20)
[2025-04-03] MEDS ORDERED: SUCCINYLCHOLINE CHLORIDE 200 MG/10 ML VIAL IV ONE (07:20)
[2025-04-03 08:04] VITALS: TEMP 97.3
--- NOTE | 2025-04-03 08:09 | P.OP ---
Date of Procedure: 04/03/25 Preoperative Diagnosis: 1. 6 week missed Postoperative Diagnosis: Same Procedure(s) Performed: Suction Dilation & Curettage Implants: None Anesthesia: NICKIA Surgeon: Coco Horan Estimated Blood Loss (ml): 50 IV fluids (ml): 800 Urine output (ml): 300 Pathology: other (products of conception) Condition: stable Disposition: floor Indications for Procedure: Ms. Ortiz is a 25 year old with 6 week missed presenting for surgical management with suction D&C. Risks, benefits, and alternatives to surgery are discussed with the patient including risk of bleeding, infection, u terine perforation, and damage to surrounding structures. The patient understands these risks and desires to proceed with surgery as discussed. Operative Findings: Uterus sounds to 10 centimeters. Moderate amount of products of conception retrieved. Description of Procedure: The patient was taken to the operating room where a general anesthetic was administered. She was then positioned in the dorsal lithotomy position and prepped and draped in the normal sterile fashion. Once the anesthetic was found to be adequate, a bimanual exam was performed under anesthetic. Next, a weighted speculum was placed in the vagina. The anterior lip of cervix was grasped with the tenaculum and the uterus was sounded to 10 cm. The cervix was then dilated with Paul dilators to accomodate the suction curette. An 8mm suction curette was connected to the suction and was placed in the cervix and a suction curettage was performed. Two passes were made with the suction curettage. Next, a sharp curettage was performed obtaining a small amount of tissue and this was followed by third suction curettage. After the procedure, the tenaculum was removed. The cervix was hemostatic. The weighted speculum was removed. After the procedure, a second bimanual exam was performed and the patient's uterus had significantly decreased in size.The patient was taken from the operating room in stable condition after she was cleaned. She will be discharged home today and will follow up in the office in 2 weeks.
[2025-04-03 09:08] VITALS: BP 112/74; PULSE 66; RESP 18
== END 2025-04-03 09:15 | disposition home or self-care (01) ==
LOC: OR 06:18
PROVIDERS: ATTEND Obstetrics & Gynecology
DX: O02.1 Missed abortion (principal)
CPT/HCPCS: 88305; 59820; J2250; J0330; J1100; J2405; J2003; J3010; J2704; J1308